=== PATIENT | female | born 1965 | race Caucasian/White ===

== ENCOUNTER 2022-04-25 20:18 | Emergency (ER) | payer OTHER ==
[~2022-04-25 20:18] MED LIST: ALLERGY RELIEF10 MG PO; AMOXICILLIN500 MG PO; CARTIA XT300 MG PO; CELEXA20 MG PO; DICLOFENAC POTA50 MG PO; FLONASE ALLER15.8 ML; LIPITOR40 MG PO; MOTRIN600 MG PO; PERCOCET 5-3251 EACH PO; PHENERGAN25 M1 PO; PREDNISONE 10MG10 MG PO; PRILOSEC20 MG PO; PRINIVIL10 MG PO; VENTOLIN HFA IN18 GM PO
[2022-04-25 20:51] LABS: BASOPHIL 0.7 % (0-2); EOSINOPHIL 3.7 % (0-5); HCT 44.3 % (37.0-47.0); LYMPHOCYTE 37.8 % (15-48); MCH 30.4 pg (25.0-31.0); MCHC 33.9 g/dL (32.0-36.0); MCV 89.7 fL (78.0-100.0); MONOCYTE 10.4 % (0-12); MPV 10.4 fL (6.0-9.5); NEUTROPHIL 46.7 % (41-80); NRBC 0; PLT 273 K/uL (150-400); RBC 4.94 M/uL (4.20-5.40); RDW 13.6 % (11.5-14.0); WBC 13.5 K/uL (4.0-10.5)
[2022-04-25 21:00] LABS: INR 0.9 (0.9-1.2); PROTHROMBIN TIME 11.6 SECONDS (11.8-13.4); PTT 30.8 SECONDS (24.4-34.7)
[2022-04-25 21:08] LABS: BILIRUBIN NEGATIVE (NEGATIVE); BLOOD TRACE-INTACT Ery/uL (NEGATIVE); CLARITY CLEAR (CLEAR); COLOR YELLOW (YELLOW); GLUCOSE (U) NORMAL (NORMAL); LEUKOCYTES NEGATIVE Leu/uL (NEGATIVE); NITRITE NEGATIVE (NEGATIVE); PROTEIN NEGATIVE (NEGATIVE); SPECIFIC GRAVITY 1.025 (1.001-1.030); UROBILINOGEN 0.2 mg/dL (0.2-1.0)
[2022-04-25 21:11] LABS: ALBUMIN 3.9 g/dL (3.4-5.0); BILIRUBIN - TOTAL 0.2 mg/dL (0.2-1.0); BUN/CREAT RATIO (CALC) 19.3 RATIO; CREATININE 0.83 mg/dL (0.51-0.95); GLOBULIN (CALCULATION) 3.5 g/dL; MAGNESIUM 2.2 mg/dL (1.8-2.4); POTASSIUM 3.6 mmol/L (3.5-5.1); TOTAL PROTEIN 7.4 g/dL (6.4-8.2)
[2022-04-25 21:14] LABS: BACTERIA TRACE; URINARY WBC RARE
== END 2022-04-25 21:08 | disposition other institution (70) ==
LOC: FER 20:18
PROVIDERS: Internal Medicine
DX: I21.29 ST elevation (STEMI) myocardial infarction involving other sites (principal); I10 Essential (primary) hypertension; E11.9 Type 2 diabetes mellitus without complications; F17.210 Nicotine dependence, cigarettes, uncomplicated; Z79.84 Long term (current) use of oral hypoglycemic drugs; Z28.311 Partially vaccinated for COVID-19
CPT/HCPCS: 36415; 71045; 80053; 81001; 83735; 83880; 84145; 84484; 85025; 85610; 85730; 93005; 96365; 96375; J1644; J2270; J2405

== ENCOUNTER 2022-06-13 17:00 | Emergency (ER) | payer OTHER ==
[2022-06-13 17:28] LABS: BASOPHIL 0.9 % (0-2); EOSINOPHIL 5.3 % (0-5); HCT 44.1 % (37.0-47.0); HGB 14.9 g/dl (12.5-16.0); MCH 30.1 pg (25.0-31.0); MCHC 33.8 g/dL (32.0-36.0); MCV 89.1 fL (78.0-100.0); MONOCYTE 9.2 % (0-12); MPV 10.9 fL (6.0-9.5); NEUTROPHIL 50.9 % (41-80); NRBC 0; PLT 279 K/uL (150-400); RBC 4.95 M/uL (4.20-5.40); RDW 13.4 % (11.5-14.0)
[2022-06-13 17:29] LABS: LYMPHOCYTE 33.4 % (15-48)
[2022-06-13 17:43] LABS: BILIRUBIN - TOTAL 0.3 mg/dL (0.2-1.0); BUN/CREAT RATIO (CALC) 25.7 RATIO; CREATININE 0.74 mg/dL (0.51-0.95); GLOBULIN (CALCULATION) 3.1 g/dL; MAGNESIUM 2.1 mg/dL (1.8-2.4); TOTAL PROTEIN 7.1 g/dL (6.4-8.2)
[2022-06-13 17:55] LABS: INR 0.9 (0.9-1.2); PROTHROMBIN TIME 11.9 SECONDS (11.9-13.9); PTT 26.9 SECONDS (24.9-34.6)
== END 2022-06-13 20:07 | disposition home or self-care (01) ==
LOC: FER 17:00
PROVIDERS: Emergency Medicine
DX: R07.89 Other chest pain (principal); I25.110 Atherosclerotic heart disease of native coronary artery with unstable angina pectoris; I25.2 Old myocardial infarction; I10 Essential (primary) hypertension; J45.909 Unspecified asthma, uncomplicated; F17.290 Nicotine dependence, other tobacco product, uncomplicated; Z28.311 Partially vaccinated for COVID-19; Z79.82 Long term (current) use of aspirin; Z95.5 Presence of coronary angioplasty implant and graft; Z79.899 Other long term (current) drug therapy
CPT/HCPCS: 36415; 71045; 80053; 83735; 83880; 84484; 85025; 85610; 85730; 93005